=== PATIENT | male | born 1965 | race Caucasian/White ===

== ENCOUNTER 2018-07-10 11:57 | Emergency (ER) | payer BC, OTHER ==
[2018-07-10 12:49] VITALS: BP 114/84
--- NOTE | 2018-07-10 13:31 | UC ---
Cardiac HPI - HPI Summary HPI Summary: Pt c/o left lateral rib pain after leaning over windshield of boat two weeks ago and felt a "pop" and "crunch" and sudden on set of "rib pain". Pt sates pain is worsening and has been taking OTC NSAIDS and applying ice with no improvement. - History of Current Complaint Chief Complaint: UCGeneralIllness Stated Complaint: LEFT SIDE RIB PAIN Time Seen by Provider: 07/10/18 12:53 Hx Obtained From: Patient Onset/Duration: Sudden Onset, Lasting Weeks - 2, Still Present Timing: Constant Initial Severity: Mild Current Severity: Moderate Pain Intensity: 6 Chest Pain Location: Discrete at:, Left Lateral Aggravating Factor(s): Position, Movement, Deep Breaths Alleviating Factor(s): Rest, Position Associated Signs & Symptoms: Positive: Negative - Risk Factors Pulmonary Embolism Risk Factors: Negative Cardiac Risk Factors: Negative Atrial Fibrillation: Negative TAD Risk Factors: Negative - Allergy/Home Medications Allergies/Adverse Reactions: Allergies Allergy/AdvReac Type Severity Reaction Status Date / Time bee stings Allergy Swelling Uncoded 07/10/18 12:44 Home Medications: Home Medications Ibuprofen TAB* [Advil TAB*] 800 mg PO Q6H PRN 07/10/18 [History Confirmed ] PMH/Surg Hx/FS Hx/Imm Hx Previously Healthy: Yes - Surgical History Surgical History: Yes Surgery Procedure, Year, and Place: right cappal tunnel surgery. (Carpal tunnel surgery 2008) - Family History Known Family History: Positive: Cardiac Disease - Social History Occupation: Employed Full-time Lives: With Family Alcohol Use: Occasionally Substance Use Type: None Smoking Status (MU): Never Smoked Tobacco Have You Smoked in the Last Year: No Review of Systems Constitutional: Negative Skin: Negative Eyes: Negative ENT: Negative Respiratory: Negative Cardiovascular: Negative Gastrointestinal: Negative Genitourinary: Negative Motor: Negative Neurovascular: Negative Musculoskeletal: Arthralgia, Myalgia Neurological: Negative Psychological: Negative Is Patient Immunocompromised?: No All Other Systems Reviewed And Are Negative: Yes Physical Exam Triage Information Reviewed: Yes Appearance: Well-Appearing Vital Signs: Initial Vital Signs Temp 98.5 F 07/10/18 12:45 Pulse 58 07/10/18 12:45 Resp 14 07/10/18 12:45 BP 114/84 07/10/18 12:45 Pulse Ox 96 07/10/18 12:45 Vital Signs Reviewed: Yes Eye Exam: Normal ENT: Positive: Hearing grossly normal Dental Exam: Normal Neck exam: Normal Respiratory Exam: Normal Cardiovascular Exam: Normal Musculoskeletal Exam: Other Musculoskeletal: Positive: Other: - c/o pain with palpation at lateral left ribs 5-8. Neurological Exam: Normal Psychological Exam: Normal Skin Exam: Normal Diagnostics - Radiology No standard instances Radiology Interpretation Completed By: Radiologist - IMPRESSION: There is a fracture of the anterior left eighth rib and possibly ninth rib. No pneumothorax is noted. - Clinical Impression Provider Diagnoses: rib fracture. IMPRESSION: There is a fracture of the anterior left eighth rib and possibly ninth rib. No. pneumothorax is noted. Discharge - Sign-Out/Discharge Documenting (check all that apply): Patient Departure All imaging exams completed and their final reports reviewed: Yes - Discharge Plan Condition: Stable Disposition: HOME Prescriptions: traMADol TAB* [Ultram*] 50 mg PO Q12H PRN #14 tab MDD 2 PRN Reason: Pain Patient Education Materials: Rib Fracture (ED) Forms: *Work Release Referrals: Reese Mcgowan MD [Medical Doctor] - If Needed Alexia Franks MD [Primary Care Provider] - If Needed - Billing Disposition and Condition Condition: STABLE Disposition: Home
--- NOTE | 2018-07-10 13:55 | RAD ---
Indication: Rib pain. 3 views of left ribs and dual energy PA chest demonstrate no mediastinal shift. Heart is of normal size and configuration. Lung bhatti appear clear. Evaluation of the ribs demonstrates fracture of the tip of the eighth rib. I cannot totally exclude a fracture of the anterior left ninth rib. IMPRESSION: There is a fracture of the anterior left eighth rib and possibly ninth rib. No pneumothorax is noted.
== END 2018-07-10 14:31 | disposition home or self-care (01) ==
LOC: UCCORT 11:57
DX: S22.32XA Fracture of one rib, left side, initial encounter for closed fracture (principal); X50.0XXA Overexertion from strenuous movement or load, initial encounter; Y93.89 Activity, other specified; Y92.89 Other specified places as the place of occurrence of the external cause
CPT/HCPCS: 99202; G0463